=== PATIENT | female | born 1985 | race Caucasian/White ===

== ENCOUNTER 2016-11-08 01:59 | Emergency (ER) | payer MEDICAID ==
[~2016-11-08] VITALS: Ht 162.6 cm; Wt 60.0 kg
[2016-11-08 02:02] VITALS: BP 137/76; PULSE 75; RESP 14; TEMP 97.7; O2SAT 99
[2016-11-08] MEDS ORDERED: LYRI200C PO (02:23)
[2016-11-08] MEDS ORDERED: DIAZEPAM 5 MG TAB PO ONE (03:00)
[2016-11-08] MEDS ORDERED: IBUPROFEN 600 MG TAB PO ONE (03:00)
--- NOTE | 2016-11-08 03:02 | PD ---
HPI Chief Complaint: Back/ Neck Pain or Injury Time Seen by Provider: 02:28 Travel History International Travel<30 days: No Contact w/Intl Traveler<30days: No Traveled to known affect area: No History of Present Illness HPI 30yo F with PMH of fibromyalgia and ovarian cyst presents to the ED with c/o lower back pain for 3 days. States it is nonradiating and got worst after lifting heavy air conditioner. Pt also has shooting tingling down back of right leg at times. Currently denies any fever, trauma, fall, chest pain, sob, n/v, abdominal pain, focal weakness, urinary complaints. PFSH Past Medical History Reproductive: Yes (endometriosis, cysts on ovaries) Immunizations Current: Yes Tetanus Vaccination: > 5 Years Influenza Vaccination: No ?: Unknown LMP: 10/05/2016 : 3 Para: 3 Past Surgical History Surgical History: No Previous Surgery Social History Alcohol Use: No Tobacco Use: Yes (1ppd) Substance Use: No Allergies-Medications (Allergen,Severity, Reaction): Coded Allergies: Doxycycline (Verified Allergy, Unknown, 11/08/16) Penicillin (Verified Allergy, Unknown, 11/08/16) Reported Meds & Prescriptions Reported Meds & Active Scripts Active Reported Lyrica (Pregabalin) 200 Mg Cap 200 Mg PO TID Review of Systems Except as stated in HPI: all other systems reviewed are Neg Physical Exam Narrative GENERAL: 30yo F not in distress. SKIN: Focused skin assessment warm/dry. HEAD: Atraumatic. Normocephalic. EYES: Pupils equal and round. No scleral icterus. No injection or drainage. CARDIOVASCULAR: Regular rate and rhythm. No murmur appreciated. RESPIRATORY: No accessory muscle use. Clear to auscultation. Breath sounds equal bilaterally. GASTROINTESTINAL: Abdomen soft, non-tender, nondistended. BACK: Mild TTP L4-L5. +Bilateral paraspinal tenderness L4-L5. Negative straight leg test at this time. MUSCULOSKELETAL: No obvious deformities. No clubbing. No cyanosis. No edema. NEUROLOGICAL: Awake and alert. No obvious cranial nerve deficits. Motor grossly within normal limits. Normal speech. PSYCHIATRIC: Appropriate mood and affect; insight and judgment normal. Data Data Last Documented VS Vital Signs Date Time Temp Pulse Resp B/P Pulse Ox O2 Delivery O2 Flow Rate FiO2 11/08/16 02:02 97.7 75 14 137/76 99 Room Air Orders Diazepam (Valium) (11/08/16 03:00) Ibuprofen (Motrin) (11/08/16 03:00) Spine, Lumbar - Ltd (Ap & Lat) (11/08/16 ) MDM Medical Decision Making Medical Screen Exam Complete: Yes Emergency Medical Condition: Yes Interpretation(s) Last Impressions Lumbar Spine X-Ray 11/08/16 0000 Signed Impressions: Service Date/Time: Tuesday, November 08, 2016 03:00 - CONCLUSION: No significant lumbar spine abnormality is identified. Juan Shah MD Differential Diagnosis Sciatica vs. musculoskeletal pain Narrative Course 30yo F with PMH of fibromyalgia here with lower back pain that seems very musculoskeletal. Also occasional shooting pain and tingling down right leg which sounded like sciatica. Pt given valium 5mg PO and ibuprofen 600mg PO. Xray LS showed no significant lumbar spine abnormality. VS stable. Return precautions given. Diagnosis Primary Impression: Musculoskeletal pain Patient Instructions: General Instructions Departure Forms: Tests/Procedures Additional Instructions: Please follow up with your PMD in 3-7 days. Return to the ED if symptoms worsen. Med/Other Pt SpecificInfo: Prescription(s) given Scripts Ibuprofen 400 Mg [id number] Mg PO Q8H PRN (PAIN SCALE 1 TO 4) #20 TAB Ref 0 Prov:Manisha Devine DO 11/08/16 Disposition: 01 DISCHARGE HOME Condition: Stable Manisha Devine DO Nov 08, 2016 03:02
--- NOTE | 2016-11-08 03:18 | RADRPT ---
EXAM DATE/TIME: 11/08/2016 03:00 [facility] COMPARISON: No previous studies available for comparison. INDICATIONS : Back pain. MEDICAL HISTORY : Patient reports lower back pain after lifting an air conditioning unit. SURGICAL HISTORY : None. ENCOUNTER: Initial ACUITY: 1 day PAIN SCORE: 4/10 LOCATION: lower back FINDINGS: Three views of the lumbar spine demonstrate five [id number] lumbar vertebral bodies. No fracture or compression deformity is present. There is no anterolisthesis or retrolisthesis. No significant a rthropathy is present. There is mild leftward convex curvature. The visualized paraspinous soft tissues and pelvic bones demonstrate no acute abnormality. CONCLUSION: No significant lumbar spine abnormality is identified. Juan Shah MD on November 08, 2016 at 3:16 Board Certified Radiologist. This report was verified electronically.
[2016-11-08] MEDS ORDERED: IBUP400T20 PO (04:37)
== END 2016-11-08 05:19 | disposition home or self-care (01) ==
LOC: NEPE 01:59
DX: M79.1 Myalgia (principal); M79.7 Fibromyalgia; F17.210 Nicotine dependence, cigarettes, uncomplicated
CPT/HCPCS: 72100; 99283